=== PATIENT | female | born 2000 | race Caucasian/White ===

== ENCOUNTER 2023-07-02 14:16 | Emergency (ER) | payer OTHER, BC, SELFPAY ==
[2023-07-02 14:24] VITALS: BP 124/86
--- NOTE | 2023-07-02 15:09 | ED.GENMED ---
History of Present Illness
General
Chief Complaint: Musculo-Skeletal Complaint
Source: patient
Time Seen by Provider: 07/02/23 14:47
Travel History
Have you had any contact with someone who has COVID-19?: No
Do you have any symptoms of coronavirus? Fever > 100 degrees, chills, cough, shortness of breath, sore throat, loss of taste or smell, muscle aches, or headache?: No
History of Present Illness
History of Present Illness:
22-year-old female presents with right shoulder injury. She fell last night at work and landed on a cart. She complains of pain at the top and posterior aspect of the right shoulder. She denies numbness or tingling. No head injury. No neck
pain. No back pain.
Past History
Past History
ED Past Medical History: Other (right ankle fracture, Idiopathic Intracranial Hypertension); Negative Asthma, HTN, Hypercholesterolemia or NIDDM
ED Past Surgical History: None
Social History
Tobacco: Non-smoker
Alcohol: None
Personal: Single
Living: with roommate
Employment: Student
Phy Exam
Physical Exam
Physical Exam:
CONSTITUTIONAL Vital signs reviewed, Patient alert and oriented to person, place and time. Well-appearing
HEAD atraumatic, normocephalic.
EYES eyelids normal to inspection, Extraocular muscles intact, Conjunctiva normal, Sclera normal.
NECK normal range of motion, Trachea midline, no jugular venous distention.
RESP no respiratory distress
BACK No obvious deformities
UPPER EXTREMITY Gross Range of motion normal, gross motor strength normal. Minor tenderness noted to the right AC joint but no obvious deformity and only very minimal tenderness. Mild tenderness to the spine of the scapula. No ecchymosis or
swelling. Normal distal pulses.
LOWER EXTREMITY Gross range of motion normal, Gross motor strength normal
NEURO Speech normal, No focal motor deficits include, Gino coma scale 15, Memory normal, Cranial Nerves intact to screening exam.
SKIN Skin warm, dry, and normal in color.
PSYCHIATRIC Patient oriented to person place and time, Normal affect.
Course
Orders/Labs/Results
Orders:
Orders
07/02/23 14:26
CR Shoulder, Trauma - Right Urgent
Reason For Exam: injury
Vital Signs
Initial and Last Documented VS:
Initial Vital Signs
Temp Pulse Resp BP Pulse Ox
98.3 F 98 20 124/86 98
07/02/23 14:24 07/02/23 14:24 07/02/23 14:24 07/02/23 14:24 07/02/23 14:24
Last Documented Vital Signs
Temp Pulse Resp BP Pulse Ox
98.3 F 98 20 124/86 98
07/02/23 14:24 07/02/23 14:24 07/02/23 14:24 07/02/23 14:24 07/02/23 14:24
MDM/Problems Addressed
MDM/Problems Addressed:
Shoulder injury
*Radiology
Radiology exam reviewed: all reviewed NAD by ED Provider
*Pulse Oximetry
Patient hypoxic: no
*Critical Care Note
Total Time (30-74mins, 75-104mins- exclusive of procedures): Not Applicable
Data Reviewed
Further Testing Considered But Not Given:
Considered head CT but no obvious head trauma no outward signs of head strike
ED Attending Note
-
Portions of this chart may have been created with voice recognition software.� Occasional wrong word or��sound alike� substitutions may have occurred due to the inherent limitations of voice recognition software.
Discharge Plan
Departure
Patient Disposition: Home (Routine Discharge)
Date of Disposition: 07/02/23
Time of Disposition: 15:09
Patient with high blood pressure during this ER visit?: No
Discharge Problem:
Injury of shoulder
Instructions: Shoulder Sprain
Prescriptions:
No Action
topiramate 25 MG tablet
75 mg PO QPM
sertraline 25 MG tablet
25 mg PO QPM
melatonin 5 MG tablet,disintegrating
5 mg PO QPM
ondansetron 4 mg Tablet,Disintegrating
4 mg PO TIDPRN PRN (Reason: nausea/vomiting) Qty: 12 0RF
cephalexin 500 mg capsule
500 mg PO QID 7 Days Qty: 28 0RF
Referrals:
Chi Mahmood MD [Active] -
Activity Restrictions/Additional Instructions:
Please rest and use ibuprofen every 6 hours for pain control. Please be sure to ice your injuries. If your symptoms last longer than 1 week, please see your doctor or orthopedics in follow-up. In 48 hours, take your sling off and start to range
your shoulder as discussed.
Interventions
Interventions:
*Risk Screen - Suicide Last Done: 07/02/23 14:24
*General Assessment Last Done: 07/02/23 14:24
*Neglect/Abuse Screening Last Done: 07/02/23 14:39
ED- Fall Risk Assessment Last Done: 07/02/23 14:41
*ED COVID-19 Vaccine History Last Done: 07/02/23 14:39
ED-Musculoskeletal Assessment Last Done: 07/02/23 14:41
== END 2023-07-02 15:50 | disposition home or self-care (01) ==
LOC: EMR 14:16
PROVIDERS: EMERGENCY PHYSICIAN Emergency Medicine
DX: S49.91XA Unspecified injury of right shoulder and upper arm, initial encounter (principal); W19.XXXA Unspecified fall, initial encounter; Y99.0 Civilian activity done for income or pay
CPT/HCPCS: 99283; 73030